=== PATIENT | female | born 1965 | race Caucasian/White ===

== ENCOUNTER → 2023-12-09 16:05 | Outpatient (AMB) | payer MEDICARE, SELFPAY ==
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
[2023-12-09 16:30] VITALS: BP 108/66; PULSE 85; RESP 14; TEMP 36.6; O2SAT 96; BMI 22.7
== END ==
PROVIDERS: PCP Family Medicine; Visit Provider Family Medicine
DX: I72.3 Aneurysm of iliac artery (principal); R23.2 Flushing
CPT/HCPCS: 99213

== ENCOUNTER 2024-01-14 11:03 | Outpatient (AMB) | payer MEDICARE, SELFPAY ==
[2024-01-14 10:59] VITALS: BMI 22.7
--- NOTE | 2024-01-14 10:59 | A.OFFVIS_ITS ---
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 She had actually been seen by the emergency room at [facility] on 11/15/2023 regarding back pain. This is a new finding for her. She is actually asymptomatic from this iliac artery aneurysm. Upon discussion with her regarding her social history she smokes nearly a pack a day. She is a nondiabetic. She does admit to use of injectable drugs, and this was as recently as 3 days ago. She now presents to us for vascular evaluation. [facility] Surgical History History of carpal tunnel surgery Social History Housing: Apartment Patient Tobacco Use Status: Current everyday Tobacco user Cigarette Packs Per Day: 1 Years Smoked: 43 e-Cigarette/Vaping Use: Never Used Second Hand Smoke Exposure: Yes Substance Use Type: Heroin and Marijuana service: No Current occupational status: disabled Current occupational exposures/hazards: No Cognitive needs: No Hearing needs: Yes (Trouble hearing) Vision needs: No Review of Systems Const All systems reviewed & are unremarkable except as noted in HPI and below Reports no additional complaints ENT Reports Normal hearing present Card Denies chest pain, Denies chest pain at rest, Denies chest pain with activity and Denies pedal edema Resp Denies cough GI Denies abdominal pain Musc Denies abnormal gait, Denies muscle cramps and Denies radiating pain into limb Skin/Breast Denies skin ulcer and Denies wounds Neuro Reports Normal hearing present and Denies abnormal gait Psych Reports no additional complaints Physical Exam Vital Signs: BMI result Body Mass Index 22.7 Const General: cooperative, healthy appearing and comfortable Orientation/consciousness: oriented to person, oriented to place and oriented to time HEENT Head: Yes normal to inspection Neck Neck: Yes normal visual inspection Carotids: no bruits Chest Chest palpation & inspection: normal inspection of the chest Resp Effort & Inspection: normal respiratory effort and able to speak in complete sentences Auscultation: clear to auscultation bilaterally, no crackles, no rales, no rhonchi and no wheezes Cardio Other: Bilateral palpable dorsalis pedis pulses Rate: regular rate Rhythm: regular rhythm Heart sounds: S1 normal heart sound present and S2 normal heart sound present Bruits: no carotid bruits Peripheral pulses: Peripheral pulses 2+ throughout GI Inspection: Yes normal to inspection Skin Wounds: no wounds Hair: normal Neuro General: oriented to person, oriented to place and oriented to time Cranial nerves: Yes CN's II-XII intact bilaterally and Yes Normal hearing present Cognition (Neuro): normal cognition Motor exam (neuro): 5/5 motor strength present throughout Extrem Other: venous exam: No significant superficial varicosities or spider telangiectasias, minimal edema General: No clubbing, No cyanosis and No edema Psych Appearance: grossly normal Mental Status: mental status grossly normal Speech and movement: Normal speech and movement present Results Reviewed Results Reviewed: CT scan report from [facility] dated 11/15/2023 reports right common iliac aneurysm measuring 1.9 cm. Assessment & Plan Assessment & Plan (1) Aneurysm of right iliac artery: Code(s): I72.3 - Aneurysm of iliac artery Category: Medical Plan: In short patient has a stable small iliac artery aneurysm. We did discuss the pathophysiology of disease and the risk of rupture. In addition we did discuss in detail risk factor modification including smoking cessation and stopping the use illegal injectable drugs. She did demonstrated awareness and it is questionable regarding her compliance. She will be following up with us in approximately 6 months time with surveillance ultrasound. Thank you for allowing us to assist in her care. Orders: Orders US abdominal aortic aneurysm 6 Months I72.3 - Aneurysm of iliac artery Coding Level of Care Code New Pt Level 4 (30025) Diagnoses Aneurysm of right iliac artery I72.3
== END 2024-01-14 11:34 | disposition home or self-care (01) ==
PROVIDERS: PCP Family Medicine; Visit Provider Surgery Vascular Surgery
DX: I72.3 Aneurysm of iliac artery (principal)
CPT/HCPCS: 99203

== ENCOUNTER → 2024-01-14 11:03 | Outpatient (BNVA) | payer MEDICARE, SELFPAY | PROVIDERS: PCP Family Medicine; Visit Provider Surgery Vascular Surgery | DX: I72.3 Aneurysm of iliac artery (principal) | CPT/HCPCS: 99202 ==

== ENCOUNTER 2024-07-15 10:23 | Outpatient (REF) | payer MEDICARE, SELFPAY ==
--- NOTE | ~2024-07-15 | US_ITS ---
EXAMINATION: US RETROPERITONEAL LIMITED (AORTA) CLINICAL INFORMATION: Aneurysm. COMPARISON: None available. TECHNIQUE: Bullock-scale, color Doppler and spectral Doppler evaluation of the abdominal aorta. FINDINGS: There is atherosclerotic disease. The measurements of the aorta in maximum AP and transverse dimensions respectively are as follows: Proximal: 3.0 x 2.6 cm. Mid: 2.4 x 2.2 cm. Distal: 1.9 x 1.8 cm. The measurements of the common iliac arteries in maximum dimensions are as follows: Right: AP: 2.5 cm. TRV: 2.2 cm. Left: AP: 1.2 cm. TRV: 1.2 cm. US/US abdominal aortic aneurysm IMPRESSION: No abdominal aortic aneurysm. There is a 2.5 cm right common iliac artery aneurysm. Electronically signed by: Lilian Ashley MD 07/29/2024 12:46 PM EST
== END 2024-07-15 10:24 | disposition home or self-care (01) ==
LOC: HO.US 10:23
PROVIDERS: PCP Family Medicine; Visit Provider Surgery Vascular Surgery
DX: I72.3 Aneurysm of iliac artery (principal)
CPT/HCPCS: 76706

== ENCOUNTER 2024-07-30 14:11 | Outpatient (AMB) | payer MEDICARE, MEDICAID, SELFPAY ==
--- NOTE | 2024-07-30 14:47 | A.OFFPC_ITS ---
Vital Signs 07/30/24 14:55 Height 5 ft 2 in Weight 125 lb 4 oz BMI 22.9 BP 120/70 Blood Pressure Location Rt brachial Position Sitting Respiration 16 Pulse 79 Pulse Source Pulse Oximeter Pulse Oximetry (%) 97 Oxygen Delivery Method Room Air Intake Visit Reasons: F/U aneurysm Intake Note: f/u aneurysm pt would also like to discuss and thyroid testing she would like a refferral for community relations director and gastro and for breast exam Allergies amoxicillin Allergy (Unknown, Verified 07/30/24 14:54) Rash metronidazole [Flagyl] Allergy (Unknown, Verified 07/30/24 14:54) Rash Tobacco use date assessed: 12/09/23 Dental Screening Dental Screen Date: 12/09/23 HPI F/U aneurysm HPI Details 59 y/o female presents to f/u chronic co nditions. Had seen Dr. [facility] 01/14/24 for aneurysm of iliac artery. Has a f/u with them and just had a recent ultrasound in July for this. Abd arterial ultrasound 07/15/24 shows 2.5 R common iliac artery aneurysm. Reports ongoing hot flashes. [facility] Surgical History History of carpal tunnel surgery Social History Housing: Apartment Patient Tobacco Use Status: Current everyday Tobacco user Cigarette Packs Per Day: 1 Years Smoked: 43 e-Cigarette/Vaping Use: Never Used Second Hand Smoke Exposure: Yes Substance Use Type: Heroin and Marijuana service: No Current occupational status: disabled Current occupational exposures/hazards: No Cognitive needs: No Hearing needs: Yes (Trouble hearing) Vision needs: No Questionnaire PHQ-9 Over the last 2 weeks, how often have you been bothered by any of the following problems? 1. Little interest or pleasure in doing things: several days 2. Feeling down, depressed, or hopeless: several days 3. Trouble falling or staying asleep, or sleeping too much: more than half the days 4. Feeling tired or having little energy: several days 5. Poor appetite or overeating: several days 6. Feeling bad about yourself - or that you are a failure or have let yourself or your family down: several days 7. Trouble concentrating on things, such as reading the newspaper or watching television: several days 8. Moving or speaking so slowly that other people could have noticed. Or the opposite - being so fidgety or restless that you have been moving around a lot more than usual: not at all 9. Thoughts that you would be better off or of hurting yourself in some way: not at all Total score: 8 Source: Developed by Drs. Rafa Astorga, Harmony Small, Ryan Toribio and colleagues, with an educational crescencio from [employer]. Thrive Questionnaire Date Thrive assessed: 12/09/23 I am a: Patient What is your living situation today?: I have a steady place to live Within the past 12 months, did the food you bought not last and you didn't have the money to get more?: Sometimes True Within the past 12 months, did you worry whether your food would run out before you got money to buy more?: Never true Do you have trouble paying for medicines?: No Do you have trouble getting transportation to medical appointments?: Yes Do you have trouble paying your heating and electricity bill?: Yes Do you have trouble taking care of your child, family member or friend?: No Do you have trouble with day-to-day activities such as bathing, preparing meals, shopping, managing finances, etc.?: Yes Are you currently unemployed and looking for a job?: No Are you interested in more education?: No Please select the resources that you would like help with: Transportation, Utilities and Daily support Currently or been in a relationship where the following occur: I choose not to answer THRIVE Score: 3 AUDIT C Alcohol Use Questionnaire (AUDIT-C) 1. How often do you have a drink containing alcohol?: Monthly or less 2. How many drinks containing alcohol do you have on a typical day when you are drinking?: 1 or 2 3. How often do you have six or more drinks on one occasion?: Never Total Score: 1 SARITA-7 AMB Questionnaire SARITA-7 Date SARITA - 7 assessed: 12/09/23 Feeling nervous, anxious, or on edge: 2 = More than half the days Not being able to stop or control worryin = Not at all Worrying too much about different things: 0 = Not at all Trouble relaxin = More than half the days Being so restless that it is hard to sit still: 1 = Several days Becoming easily annoyed or irritable: 0 = Not at all Feeling afraid as if something awful might happen: 0 = Not at all Total SARITA-7 score (0-4 normal; 5-9 mild; 10-14 moderate; 15-21 severe): 5 Source: Developed by Drs. Rafa Astorga, Harmony Small, Ryan Toribio and colleagues, with an educational crescencio from [employer]. Review of Systems Const Denies chills, Denies fatigue, Denies fever(s), Denies headache(s) and Denies weakness ENT Denies dizziness and Denies headache(s) Card Denies dyspnea Resp Denies cough, Denies dyspnea, Denies wheezing and Denies other (shortness of breath) Musc Denies numbness and Denies tingling Neuro Denies dizziness, Denies headache(s), Denies numbness, Denies tingling and Denies weakness Psych Denies anxiety and Denies depression Endo Denies fatigue Aller/Immun Denies wheezing Physical exam (Primary Care) Vital Signs: Last Vital Signs Pulse 79 07/30/24 14:55 Resp 16 07/30/24 14:55 BP 120/70 07/30/24 14:55 Pulse Ox 97 07/30/24 14:55 Oxygen Delivery Method Room Air 07/30/24 14:55 BMI result Body Mass Index 22.9 Tobacco/Smoking Status: Tobacco use Status Tobacco use date assessed 12/09/23 07/30/24 14:47 Patient Tobacco Use Status Current everyday Tobacco 07/30/24 14:47 e-Cigarette/Vaping Use Never Used 07/30/24 14:47 PHQ-9: PHQ-9 Score PHQ-9: Total score 8 07/30/24 14:47 Thrive Assessment: Date of Thrive Assessment Date Thrive assessed 12/09/23 07/30/24 14:47 Currently or been in a relationship where the following occur: I choose not to answer Const General: well developed; No acute distress Nutritional Appearance: well nourished Orientation/consciousness: patient oriented x3 HENMT Head: Yes normocephalic and Yes atraumatic Eyes General: appearance normal, both eyes and all related structures Pupils: Equal, round and reactive pupils present EOM: EOMs intact bilaterally Resp Effort & Inspection: normal respiratory effort Neuro General: patient oriented x3 and gait normal Cranial nerves: Yes Equal, round and reactive pupils present Psych Affect: normal affect Coding Level of Care Code Est Pt Level 4 (82672) Diagnoses Aneurysm of right iliac artery I72.3 Screening for cervical cancer Z12.4 Screening for colon cancer Z12.11 Hot flashes R23.2 Breast cancer screening by mammogram Z12.31 Assessment & Plan Assessment & Plan (1) Aneurysm of right iliac artery: Code(s): I72.3 - Aneurysm of iliac artery Category: Medical Plan: Patient?had?had?an?incidental?finding?of?a?1.5?cm?iliac?aneurysm. Six-month?follow-up?ultrasound?is?now?showing?a?2.5?cm?aneurysm. Advised?patient?to?follow-up?with?her?vascul ar?surgeon.??She?will?call?him?for?follow-up (2) Screening for cervical cancer: Code(s): Z12.4 - Encounter for screening for malignant neoplasm of cervix Category: Medical Plan: Patient?requests?referral?to?[facility]?OBGYN.??Referred (3) Screening for colon cancer: Code(s): Z12.11 - Encounter for screening for malignant neoplasm of colon Category: Medical Plan: Patient?has?never?had?a?screening?colonoscopy Referred?to?Gastroenterology (4) Hot flashes: Code(s): R23.2 - Flushing Category: Medical Plan: Ongoing?hot?flashes. Unclear?cause.??Patient ?does?have?a?history?of?opiate?use?disorder?and?this?may?represent?withdrawal.?? However?could?also?be?a?thyroid?hormone?disorder?and?I?had?ordered?thyroid?hormo ne?testing?but?she?has?not?gotten?his?dr cleaning?yet.??She?will?get?this?drawn?and?we?can?follow- up?on?this?at?a?subsequent?ointment. May?also?be?perimenopause.??Could?try?Veozah once?thyroid?disorder?is?ruled?out. 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
[2024-07-30 14:55] VITALS: BP 120/70; PULSE 79; RESP 16; O2SAT 97; BMI 22.9
== END 2024-07-30 15:51 | disposition home or self-care (01) ==
PROVIDERS: PCP Family Medicine; Visit Provider Family Medicine
DX: I72.3 Aneurysm of iliac artery (principal); Z12.4 Encounter for screening for malignant neoplasm of cervix; Z12.11 Encounter for screening for malignant neoplasm of colon; R23.2 Flushing; Z12.31 Encounter for screening mammogram for malignant neoplasm of breast

== ENCOUNTER → 2024-07-30 14:11 | Outpatient (BNVA) | payer MEDICARE, MEDICAID, SELFPAY | PROVIDERS: PCP Family Medicine; Visit Provider Family Medicine | DX: I72.3 Aneurysm of iliac artery (principal); R23.2 Flushing | CPT/HCPCS: 96127; 99212 ==

== ENCOUNTER 2024-08-12 10:23 | Outpatient (REF) | payer MEDICARE, MEDICAID, SELFPAY ==
[2024-08-12 10:43] LABS: MANUAL DIFF FLAG NO
[2024-08-12 11:21] LABS: Basophils Absolute Auto 0.1 X10*3/uL (0.0-0.2); Basophils Percent Auto 0.9 % (0-2); Eosinophils Absolute Auto 0.3 X10*3/uL (0.0-0.4); Eosinophils Percent Auto 4.5 % (0-4); Hematocrit 43.9 % (37.0-47.0); Hemoglobin 14.1 g/dl (12.0-16.0); Imm Gran Abs Auto 0.01 X10*3/uL (0.00-0.03); Imm Gran Pct Auto 0.1 % (0.0-0.4); Lymphocytes Absolute Auto 3.4 X10*3/uL (1.2-4.9); Lymphocytes Percent Auto 50.4 % (20-40); Mean Corpuscular HGB Conc 32.1 g/dl (31.0-35.0); Mean Corpuscular Hemoglobin 29.6 pg (27.0-33.0); Mean Corpuscular Volume 92.2 fL (80.0-98.0); Mean Platelet Volume 9.9 fL (9.4-12.3); Monocytes Absolute Auto 0.4 X10*3/uL (0.1-1.2); Monocytes Percent Auto 6.4 % (2-11); Neutrophils Absolute Auto 2.5 x10*3/uL (2.0-8.3); Neutrophils Percent Auto 37.7 % (45-73); Platelet Count 335 X10*3/uL (160-400); Red Blood Count 4.76 X10*6/uL (4.20-5.50); Red Cell Distribution Width 13.3 % (11.0-16.0); White Blood Count 6.7 X10*3/uL (4.8-10.8)
[2024-08-12 11:40] LABS: Appearance Urine Clear; Color Urine Yellow; Glucose Urine UA Negative (Negative); Leukocyte Esterase Urine Moderate (2+) (Negative); Nitrite Urine Negative (Negative); UMIC TRIGGER UA YES; Urine Blood Negative (Negative); Urine Ketones Negative (Negative); Urine Protein Negative (Neg-Trace)
[2024-08-12 11:44] LABS: Bacteria Urine 4+ (None Seen); Hyaline Casts Urine 0-2 /LPF (0-2); RBC Urine 0-2 /HPF (0-2)
[2024-08-12 12:06] LABS: Alanine Aminotransferase 14 U/L (0-31); Albumin Level 4.2 g/dL (3.5-5.0); Alkaline Phosphatase 113 U/L (39-117); Anion Gap 10 (12-20); Aspartate Amino Transferase 19 U/L (5-31); Bilirubin Total 0.4 mg/dL (0.0-1.0); Blood Urea Nitrogen 16 mg/dL (9-16); Calcium 9.8 mg/dL (8.4-10.2); Carbon Dioxide 32 mmol/L (22-29); Chloride 102 mmol/L (96-108); Cholesterol 185 mg/dL (<200); Estimated Glomerular Filt Rate > 60; Glucose Fasting 93 mg/dL (60-99); HDL Cholesterol 61 mg/dL (>40); LDL Cholesterol Calculated 114 mg/dL (<100); Potassium 4.1 mmol/L (3.3-5.1); Sodium 140 mmol/L (135-145); Total Protein 7.4 g/dL (6.5-8.0); Triglycerides 54 mg/dL (<150)
[2024-08-12 12:13] LABS: Creatinine Urine 73.21 mg/dL; Microalbumin Urine < 5.0 mg/L; TSH reflex Free T4 1.18 uIU/mL (0.32-4.0); Vitamin D 25-OH Total 28.2 ng/mL (>30)
== END 2024-08-12 10:24 | disposition home or self-care (01) ==
LOC: HO.LAB 10:23
PROVIDERS: PCP Family Medicine; Visit Provider Family Medicine
DX: Z00.00 Encounter for general adult medical examination without abnormal findings (principal); I10 Essential (primary) hypertension; E55.9 Vitamin D deficiency, unspecified
CPT/HCPCS: 36415; 80053; 80061; 81001; 82043; 82306; 82570; 84443; 85025

== ENCOUNTER → 2024-08-26 14:36 | Outpatient (AMB) | payer MEDICARE, MEDICAID, SELFPAY ==
--- NOTE | 2024-08-26 14:37 | MHC.OFFVIS ---
Vital Signs 08/26/24 14:38 Height 5 ft 2 in Weight 125 lb BMI 22.9 Intake Visit Reasons: Follow Up abdominal arterial study Intake Note: 6 mo follow up AAA US 07/15/24 Accompanied by: Self / Same As Patient Allergies amoxicillin Allergy (Unknown, Verified 08/26/24 14:40) Rash metronidazole [Flagyl] Allergy (Unknown, Verified 08/26/24 14:40) Rash HPI HPI Follow Up abdominal arterial study: Details: Complex 59-year-old female presents for follow-up regarding left iliac artery aneurysm. This was originally diagnosed at [facility] back on 11/15/2023 upon workup for back pain. She is doing better in terms of that. She is asymptomatic from this iliac aneurysm. She now presents for routine surveillance regarding that. Of note she most recently had a fall and hit a board and her chest and that is the only source of discomfort for her right now. [facility] Surgical History History of carpal tunnel surgery Social History (Updated 08/26/24 @ 14:41 by ELENITA Cash) Housing: Apartment Patient Tobacco Use Status: Current everyday Tobacco user Cigarettes Per Day: 10 Years Smoked: 43 e-Cigarette/Vaping Use: Never Used Second Hand Smoke Exposure: Yes Substance Use Type: Heroin and Marijuana service: No Current occupational status: disabled Current occupational exposures/hazards: No Cognitive needs: No Hearing needs: Yes (Trouble hearing) Vision needs: No Review of Systems Const All systems reviewed & are unremarkable except as noted in HPI and below Reports no additional complaints ENT Reports Normal hearing present Card Denies chest pain, Denies chest pain at rest, Denies chest pain with activity and Denies pedal edema Resp Denies cough GI Denies abdominal pain Musc Denies abnormal gait, Denies muscle cramps and Denies radiating pain into limb Skin/Breast Denies skin ulcer and Denies wounds Neuro Reports Normal hearing present and Denies abnormal gait Psych Reports no additional complaints Physical Exam Vital Signs: BMI result Body Mass Index 22.9 Const General: cooperative, healthy appearing and comfortable Orientation/consciousness: oriented to person, oriented to place and oriented to time HEENT Head: Yes normal to inspection Neck Neck: Yes normal visual inspection Carotids: no bruits Chest Chest palpation & inspection: normal inspection of the chest Resp Effort & Inspection: normal respiratory effort and able to speak in complete sentences Auscultation: clear to auscultation bilaterally, no crackles, no rales, no rhonchi and no wheezes Cardio Rate: regular rate Rhythm: regular rhythm Heart sounds: S1 normal heart sound present and S2 normal heart sound present Bruits: no carotid bruits Peripheral pulses: Peripheral pulses 2+ throughout GI Inspection: Yes normal to inspection Skin Wounds: no wounds Hair: normal Neuro General: oriented to person, oriented to place and oriented to time Cranial nerves: Yes CN's II-XII intact bilaterally and Yes Normal hearing present Cognition (Neuro): normal cognition Motor exam (neuro): 5/5 motor strength present throughout Extrem Other: venous exam: No significant superficial varicosities or spider telangiectasias, minimal edema General: No clubbing, No cyanosis and No edema Psych Appearance: grossly normal Mental Status: mental status grossly normal Speech and movement: Normal speech and movement present Results Reviewed Results Reviewed: Noninvasive arterial testing demonstrates 3.5 cm right common iliac artery aneurysm. Assessment & Plan Assessment & Plan (1) Aneurysm of right iliac artery: Code(s): I72.3 - Aneurysm of iliac artery Category: Medical Plan: In short patient has stable iliac artery aneurysm. Size change may be related to different modalities of testing. At the current time she does appear to be stable. We did discuss risk factor modification in particular use of injectable drugs. She will follow up with us in 1 year's time with surveillance ultrasound. Thank you for allowing us to assist in her care. If there are any questions or concerns please do not hesitate to contact us Orders: Orders US abdominal aortic aneurysm 1 Year I72.3 - Aneurysm of iliac artery Coding Level of Care Code Est Pt Level 4 (57667) Complex EM visit Add On G2211 Diagnoses Aneurysm of right iliac artery I72.3
[2024-08-26 14:38] VITALS: BMI 22.9
== END ==
PROVIDERS: PCP Family Medicine; Visit Provider Surgery Vascular Surgery
DX: I72.3 Aneurysm of iliac artery (principal)
CPT/HCPCS: 99214; G2211

== ENCOUNTER → 2024-08-26 14:36 | Outpatient (BNVA) | payer MEDICARE, MEDICAID, SELFPAY | PROVIDERS: PCP Family Medicine; Visit Provider Surgery Vascular Surgery | DX: I72.3 Aneurysm of iliac artery (principal) | CPT/HCPCS: 99212 ==